=== PATIENT | male | born 1970 | race Two or more races ===

== ENCOUNTER 2021-01-22 10:04 | Emergency (ER) | payer SELFPAY ==
[~2021-01-22] VITALS: Ht 175.3 cm; Wt 75.0 kg
[2021-01-22 10:21] VITALS: BP 96/59
[2021-01-22] MEDS ORDERED: B50 MT (10:45)
== END 2021-01-22 11:10 | disposition home or self-care (01) ==
LOC: ER 10:04
DX: G47.00 Insomnia, unspecified (principal)
CPT/HCPCS: 99282